=== PATIENT | female | born 1955 | race Caucasian/White ===

== ENCOUNTER → 2022-10-15 | Day surgery (SDC) | payer MEDICARE ==
[~2022-10-15] MED LIST: 5-HTP100 MG; ACETAMINOPHEN 1000 MG/100 ML 100 ML IV ONE; ALBUTEROL0.63 MG/3 NEB; ALIGN4 MG; AMLODIPINE BESYL5 MG PO; BUPIVACAINE HCL 0.5% INJ 30 ML VIAL INJ ONE; CEFAZOLIN SODIUM 2 GM ONE; CENTRUM ADULTS1 EACH PO; DEXAMETHASONE SOD PHOS INJ 4 MG/ML SDV ONE; EPHEDRINE SULFATE INJ 50 MG/ML VIAL ONE; FENTANYL CITRATE/PF 100MCG/2 ML INJ ONE; IPRATROPIUM BRO15 ML; IRON; KETOROLAC TROMETHAMINE 30 MG/ML VIAL ONE; LIDOCAINE HCL 2% LOCAL INJ 5 ML SDV VIAL INJ ONE; MELATONIN10 M1 PO; METOCLOPRAMIDE HCL 10 MG/2ML VIAL ONE; MIDAZOLAM HCL 2 MG/2 ML VIAL ONE; ONDANSETRON HCL INJ 2MG/ML 2ML 2 MG/ML VIAL ONE; POVIDONE IODINE 0.05% 0.05 % ML PO ONE; PROPOFOL IV EMULSION 10 MG/ML 20 ML VIAL ONE; RED YEAST RICE E1 GM PO; SEVOFLURANE INHAL SOLN 250 ML PEN BTL ONE; VITAMIN D31 GM PO; ZETIA10 MG PO; [UNRECOGNIZED DRUG - REMARK]
[2022-10-15 14:35] VITALS: BP 127/80
== END | disposition home or self-care (01) ==
LOC: OR 10:13
PROVIDERS: ATTEND Podiatrist Foot & Ankle Surgery
DX: M21.6X2 Other acquired deformities of left foot (principal); M24.175 Other articular cartilage disorders, left foot; M21.272 Flexion deformity, left ankle and toes; I10 Essential (primary) hypertension; E78.5 Hyperlipidemia, unspecified; J45.909 Unspecified asthma, uncomplicated; F41.9 Anxiety disorder, unspecified; F32.A Depression, unspecified; Z88.8 Allergy status to other drugs, medicaments and biological substances; Z88.4 Allergy status to anesthetic agent; Z88.6 Allergy status to analgesic agent; Z01.818 Encounter for other preprocedural examination
CPT/HCPCS: 28308; 28899; 71046; C1713; J0131; J1100; J1885; J2001; J2250; J2405; J2704; J2765; J3010; Q4152